=== PATIENT | female | born 1945 | race Caucasian/White ===

== ENCOUNTER → 2016-06-07 | Outpatient (CLI) | payer MEDICARE, OTHER ==
--- NOTE | ~2016-06-07 | US37 ---
[facility] A Service of [facility] RADIOLOGY TEXT RESULTS PATIENT: LARISA JAMES LOCATION: [facility] : 49 UNIT #: [id number] AGE: [address]: Rachna Nur MD SEX: F ORDER DR: [id number] [facility] [address] [place], [place] [address] [id number] O MR#: [id number] Acc #: [id number] NAME: LARISA JAMES : 1945 SEX: F STUDY DATE/TIME: 06/07/2016 10:17 UNIT: [facility] ROOM: STUDY DESCRIPTION: US Carotid W/Doppler Bilateral Attending Physician: Rachna Nur M.D. Referring Physician: Rachna Nur M.D. Ordering Physician: Rachna Nur M.D. Primary Care Physician: Generic Doctor Not In System MEDICAL IMAGING REPORT This report is preliminary unless electronic signature is present EXAM Bilateral carotid Doppler DATE OF EXAM: 05/28/16 HISTORY Carotid bruit. FINDINGS The right common, internal carotid and external carotid arteries are widely patent without plaque or intimal thickening throughout. Velocity of the common carotid artery is 82 cm/sec. Peak systolic velocity of the right proximal internal carotid is 74 cm/sec with an end diastolic velocity of 19 cm/sec for an ICA:CCA ratio of 0.9. External carotid artery had a velocity of 110 cm/sec. The vertebral artery is visualized with antegrade flow. The left common carotid, internal carotid and external carotid arteries are widely patent without plaque or intimal thickening. Velocity of the common carotid artery is 92 cm/sec Peak systolic velocity of the left proximal internal carotid artery is 67 cm/sec with an end diastolic velocity of 20 cm/sec for an ICA:CCA ratio o f0.73. External carotid artery had a velocity of 105 cm/sec. The vertebral artery is visualized with antegrade flow. IMPRESSION 1. Normal appearance of the right and left internal carotid arteries. 2. No stenosis of the external carotid arteries. 3. Antegrade flow of the vertebral arteries. [facility] A Service of [facility] RADIOLOGY TEXT RESULTS PATIENT: LARISA JAMES LOCATION: [facility] : 49 UNIT #: [id number] AGE: [address]: Rachna Nur MD SEX: F ORDER DR: Dictated by... Aleksandar Hogue M.D. THIS IS AN ELECTRONICALLY VERIFIED REPORT Aleksandar Hogue M.D. at 06/08/2016 10:42 PM CAROLYNN/caitlin TD: 06/07/2016 13:07 JOB #: [id number] MEDICAL IMAGING REPORT COPY
== END | disposition home or self-care (01) ==
LOC: CNIV 09:55
DX: R09.89 Other specified symptoms and signs involving the circulatory and respiratory systems (principal)
CPT/HCPCS: 93880

== ENCOUNTER → 2016-08-15 | Outpatient (CLI) | payer MEDICARE, OTHER ==
[2016-08-15 10:10] LABS: HEMATOCRIT 36.7 % (35.0-45.0); HEMOGLOBIN 12.5 gm/dL (12.0-16.0); MEAN CELL VOLUME 94.4 FL (83-96); MEAN CORPUSCULAR HEMOGLOBIN 32.1 PG (28-34); MEAN PLATELET VOLUME 8.3 FL (6.5-11.5); RED BLOOD COUNT 3.89 X10e (3.90-5.30); WHITE BLOOD COUNT 8.9 X10e3 (4.0-10.5)
[2016-08-15 10:51] LABS: BUN/CREATININE RATIO 14.66; CALCIUM SERUM 9.5 mg/dL (8.4-10.2); CREATININE SERUM 1.5 mg/dL (0.6-1.4); GLOM FILT RATE Estimated 35.4 mL/min (>60); PHOSPHOROUS 4.2 mg/dL (2.5-4.6)
[2016-08-15 15:33] LABS: CREATININE,RANDOM URINE 216 mg/dL; TOTAL PROTEIN,RANDOM URINE 27 mg/dl (<10)
[2016-08-18 11:08] LABS: CALCIUM (PTHINTACT) 9.6 mg/dL (8.6-10.4)
== END | disposition home or self-care (01) ==
LOC: CLAB 09:26
PROVIDERS: Internal Medicine Nephrology
DX: I12.9 Hypertensive chronic kidney disease with stage 1 through stage 4 chronic kidney disease, or unspecified chronic kidney disease (principal); N18.3 Chronic kidney disease, stage 3 (moderate)
CPT/HCPCS: 36415; 80048; 82310; 82570; 83970; 84100; 84156; 85027